=== PATIENT | female | born 1975 | race Caucasian/White ===

== ENCOUNTER 2018-04-14 17:02 | Inpatient (IN) ==
[2018-04-14 17:47] LABS: Basophils % 0.6 % (0.0-0.8); Eosinophils % 0.6 % (0.00-10.9); Hematocrit 27.6 VOL% (35.7-47.0); Hemoglobin 9.4 GM/DL (12.0-16.0); Immature Granulocytes % 1.2 %; Immature Granulocytes Absolute 0.04 #; Lymphocytes # 0.4 10*3/uL (1.4-4.0); Lymphocytes % 12.5 % (21.3-54.2); Mean Corpuscular HGB Conc 34.1 GM/DL (32-36); Mean Corpuscular Hemoglobin 36 PG (27-34); Mean Corpuscular Volume 105.3 FL (87-102); Mean Platelet Volume 9.9 FL (9.6-12.0); Monocytes # 0.2 10*3/uL (0.11-0.8); Monocytes % 5.5 % (1.7-12.7); Neutrophils # 2.6 10*3/uL (1.4-7.4); Neutrophils % 79.6 % (38.7-73.9); Platelet Count 293 T/CUMM (130-400); Red Blood Count 2.62 MC/CUMM (3.8-5.5); Red Cell Distribution Width 18.8 % (9.3-17.3); White Blood Count 3.3 T/CUMM (4-12)
[2018-04-14 18:03] LABS: Alanine Aminotransferase < 6 U/L (13-56); Albumin 2.1 G/DL (3.4-5.0); Alkaline Phosphatase 233 U/L (45-117); Aspartate Amino Transferase 20 U/L (0-37); Blood Urea Nitrogen 5 MG/DL (7-18); Glucose 91 MG/DL (74-106); Osmolality,Calculated 271.7 MOS/KG (273-304); Potassium 3.7 MMOL/L (3.5-5.1); Sodium 138 MMOL/L (136-145); Total Protein 6.7 G/DL (6.4-8.3)
[2018-04-14 18:21] LABS: INR 1.1; PT Patient Result 11.8 SECS; Partial Thromboplastin Time 33.8 SECS (0-40)
[2018-04-14] MEDS ORDERED: MORPHINE 4 MG/1 ML VIAL IV STA (18:26)
[2018-04-14] MEDS ORDERED: ONDANSETRON 4 MG/2 ML VIAL IV ONE (18:26)
[2018-04-14 18:27] LABS: Band Neutrophils 3 % (0-10); Lymphocytes 10 % (20-55); Segmented Neutrophils 81 % (50-85); Total Cells Counted 100
[2018-04-14 18:33] LABS: Anisocytosis 1+
[2018-04-14 18:34] LABS: Platelet Estimate Normal
[2018-04-14] MEDS ORDERED: PIPERACILLIN/TAZOBACTAM 3,375 MG in SODIUM CHLORIDE 0.9% 100 ML IV ONE (19:37)
[2018-04-14] MEDS ORDERED: FLUCONAZOLE 200 MG TABLET PO ONE (21:17)
[2018-04-14] MEDS ORDERED: METHOCARBAMOL 500 MG TABLET PO SCH (21:17)
[2018-04-14] MEDS ORDERED: ACETAMINOPHEN 325 MG TABLET PO PRN (21:17)
[2018-04-14] MEDS ORDERED: NICOTINE 7 MG/24 HR PATCH TRANSDERM PRN (21:17)
[2018-04-14] MEDS ORDERED: oxyCODONE IR 5 MG TABLET PO PRN (21:17)
[2018-04-14] MEDS ORDERED: ONDANSETRON 4 MG/2 ML VIAL IV PRN (21:17)
[2018-04-14] MEDS ORDERED: traZODone 50 MG TABLET PO SCH (21:17)
[2018-04-14] MEDS ORDERED: MORPHINE 4 MG/1 ML VIAL IV PRN (21:17)
[2018-04-14] MEDS ORDERED: ALBUTEROL/IPRATROPIUM 3 ML NEB RESP TX PRN (21:17)
[2018-04-14] MEDS ORDERED: PHENOL 1.4% THROAT SPRAY 177 ML BOTTLE PO PRN (21:17)
[2018-04-14] MEDS: VALSARTAN/HCTZ 80-12.5 MG TABLET PO SCH (22:14)
[2018-04-14] MEDS: VENLAFAXINE XR 75 MG CAPSULE PO SCH (22:15)
[2018-04-14] MEDS: DOCUSATE SODIUM 100 MG CAPSULE PO SCH (22:15)
[2018-04-14] MEDS: LEVOTHYROXINE 100 MCG TABLET PO SCH (22:16)
[2018-04-14] MEDS: ENOXAPARIN 40 MG/0.4 ML SYRINGE SUBCUT SCH (22:16)
[2018-04-14] MEDS: oxyCODONE IR 5 MG TABLET PO SCH (22:16)
[2018-04-14] MEDS: LETROZOLE 2.5 MG TABLET PO SCH (22:16)
[2018-04-14] MEDS: SODIUM CHLORIDE 0.9% 1,000 ML IV SCH (22:17)
[2018-04-15 00:50] LABS: Apearance,Urine CLEAR (Clear); Bilirubin,Urine Negative (Negative); Blood, Urine Negative (Negative); Glucose,Urine (UA) Negative (Negative); Ketones,Urine 5 mg/dL (Negative); Nitrite,Urine Negative (Negative); Protein,Urine Negative; Squamous Epithelial Cell,Urine Occasional /HPF (0-10); Urine Color Yellow (Yellow); Urine Specific Gravity 1.056 (1.001-1.035); Urine Urobilinogen < 2.0 EU/DL (0.2-1.0); WBC,Urine <1 /HPF (0-6)
[2018-04-15] MEDS: ALBUTEROL/IPRATROPIUM 3 ML NEB RESP TX SCH ×4 (01:04→19:48)
[2018-04-15] MEDS: cefTRIAXone 1,000 MG in SYRINGE 1 EACH IV SCH ×2 (02:11→14:59)
[2018-04-15] MEDS: FLUCONAZOLE 100 MG TABLET PO SCH (08:56)
[2018-04-15] MEDS: DOCUSATE SODIUM 100 MG CAPSULE PO SCH ×2 (08:57→20:31)
[2018-04-15] MEDS: VENLAFAXINE XR 75 MG CAPSULE PO SCH ×2 (08:58→20:32)
[2018-04-15] MEDS ORDERED: PANTOPRAZOLE 40 MG TABLET PO SCH (09:00)
[2018-04-15] MEDS ORDERED: oxyCODONE ER 40 MG TABLET PO SCH (09:00)
[2018-04-15] MEDS ORDERED: AZITHROMYCIN INJ 500 MG in SODIUM CHLORIDE 0.9% 250 ML IV SCH (09:00)
[2018-04-15] MEDS: oxyCODONE IR 5 MG TABLET PO SCH (09:02)
[2018-04-15] MEDS ORDERED: oxyCODONE IR 5 MG TABLET PO PRN (13:57)
[2018-04-15] MEDS ORDERED: NALOXONE 0.4 MG/ML VIAL IV ONE (14:12)
[2018-04-15] MEDS ORDERED: NALOXONE 0.4 MG/ML VIAL IV PRN (14:30)
[2018-04-15] MEDS: SODIUM CHLORIDE 0.9% 1,000 ML IV SCH (15:04)
[2018-04-15] MEDS ORDERED: PALBOCICLIB 125 MG PO SCH (17:00)
[2018-04-15 19:40] LABS: ABG Base Excess -3.3 MMOL/L (-2.5-2.5); ABG HCO3 21.4 MMOL/L (20-26); ABG PCO2 45.3 MM HG (35-48); ABG PH 7.312 (7.35-7.45); ABG PO2 45.9 MM HG (80-95); ABG TCO2 21.4 MMOL/L (23-27); Allen Test Positive
[2018-04-15] MEDS: ENOXAPARIN 40 MG/0.4 ML SYRINGE SUBCUT SCH (20:32)
[2018-04-15] MEDS: LETROZOLE 2.5 MG TABLET PO SCH (20:32)
[2018-04-15] MEDS: VALSARTAN/HCTZ 80-12.5 MG TABLET PO SCH (20:32)
[2018-04-15] MEDS: LEVOTHYROXINE 100 MCG TABLET PO SCH (20:32)
[2018-04-15] MEDS: KETOROLAC 30 MG/1 ML VIAL IV PRN (20:36)
[2018-04-15 20:41] LABS: ABG PCO2 48.6 MM HG (35-48); ABG PH 7.282 (7.35-7.45); ABG PO2 73.4 MM HG (80-95); ABG TCO2 20.9 MMOL/L (23-27); Allen Test Positive; Pt O2 Delivery Device BIPAP
[2018-04-15 23:43] LABS: ABG Base Excess -3.6 MMOL/L (-2.5-2.5); ABG HCO3 21.3 MMOL/L (20-26); ABG Oxygen Saturation 91.1 % (95-100); ABG PCO2 52.7 MM HG (35-48); ABG PH 7.258 (7.35-7.45); ABG TCO2 22.6 MMOL/L (23-27); Allen Test Positive; Pt O2 Delivery Device BIPAP
[2018-04-16] MEDS: ALBUTEROL/IPRATROPIUM 3 ML NEB RESP TX SCH ×4 (01:28→21:28)
[2018-04-16] MEDS: SODIUM CHLORIDE 0.9% 1,000 ML IV SCH ×3 (02:12→17:26)
[2018-04-16 03:47] LABS: ABG Base Excess -4.2 MMOL/L (-2.5-2.5); ABG HCO3 21.9 MMOL/L (20-26); ABG Oxygen Saturation 91.4 % (95-100); ABG PCO2 45.1 MM HG (35-48); ABG PH 7.305 (7.35-7.45); ABG PO2 68.8 MM HG (80-95); ABG TCO2 23.3 MMOL/L (23-27); Allen Test Positive; Pt O2 Delivery Device BIPAP
[2018-04-16] MEDS ORDERED: VECURONIUM 10 MG VIAL IV ONE ×2 (04:23→04:30)
[2018-04-16] MEDS ORDERED: ETOMIDATE 20 MG/10 ML VIAL IV ONE ×4 (04:24→04:32)
[2018-04-16] MEDS ORDERED: PROPOFOL 1,000 MG/100 ML BOTTLE IV ONE (04:46)
[2018-04-16 04:57] LABS: Alanine Aminotransferase < 6 U/L (13-56); Albumin 1.6 G/DL (3.4-5.0); Alkaline Phosphatase 186 U/L (45-117); Aspartate Amino Transferase 21 U/L (0-37); Blood Urea Nitrogen 5 MG/DL (7-18); Calcium 7.5 MG/DL (8.5-10.1); Glucose 88 MG/DL (74-106); Osmolality,Calculated 276.3 MOS/KG (273-304); Potassium 4.5 MMOL/L (3.5-5.1); Sodium 141 MMOL/L (136-145); Total Protein 5.5 G/DL (6.4-8.3)
[2018-04-16] MEDS: cefTRIAXone 1,000 MG in SYRINGE 1 EACH IV SCH (05:10)
[2018-04-16 05:39] LABS: ABG Base Excess -3.8 MMOL/L (-2.5-2.5); ABG HCO3 21.2 MMOL/L (20-26); ABG Oxygen Saturation 99.4 % (95-100); ABG PCO2 42.4 MM HG (35-48); ABG PH 7.323 (7.35-7.45); ABG TCO2 20.8 MMOL/L (23-27); Allen Test Positive; Pt O2 Delivery Device Ventilator
[2018-04-16 05:41] LABS: Basophils % 0.4 % (0.0-0.8); Eosinophils % 0.4 % (0.00-10.9); Hematocrit 22.7 VOL% (35.7-47.0); Immature Granulocytes % 1.2 %; Immature Granulocytes Absolute 0.03 #; Lymphocytes # 0.4 10*3/uL (1.4-4.0); Lymphocytes % 15.4 % (21.3-54.2); Mean Corpuscular HGB Conc 32.2 GM/DL (32-36); Mean Corpuscular Hemoglobin 35 PG (27-34); Mean Corpuscular Volume 108.6 FL (87-102); Mean Platelet Volume 9.9 FL (9.6-12.0); Monocytes # 0.1 10*3/uL (0.11-0.8); Monocytes % 4.5 % (1.7-12.7); NRBC # 0.02 10*3/uL; Neutrophils # 1.9 10*3/uL (1.4-7.4); Neutrophils % 78.1 % (38.7-73.9); Platelet Count 267 T/CUMM (130-400); Red Cell Distribution Width 19.1 % (9.3-17.3); White Blood Count 2.5 T/CUMM (4-12)
[2018-04-16 05:45] LABS: Red Blood Count 2.09 MC/CUMM (3.8-5.5)
[2018-04-16 05:46] LABS: Hemoglobin 7.3 GM/DL (12.0-16.0)
[2018-04-16 06:08] LABS: Acanthocytes Few; Anisocytosis 3+; Band Neutrophils 4 % (0-10); Lymphocytes 20 % (20-55); Macrocytosis 2+; Microcytosis 1+; Platelet Estimate Normal; Segmented Neutrophils 71 % (50-85); Total Cells Counted 100
[2018-04-16] MEDS: PROPOFOL 1,000 MG/100 ML BOTTLE IV SCH ×2 (06:54→22:50)
[2018-04-16] MEDS ORDERED: FUROSEMIDE 20 MG/2 ML VIAL IV ONE (07:43)
[2018-04-16] MEDS ORDERED: SODIUM CHLORIDE 0.9% 1,000 ML IV PRN (07:46)
[2018-04-16] MEDS: VENLAFAXINE XR 75 MG CAPSULE PO SCH ×2 (10:31→22:18)
[2018-04-16] MEDS: DOCUSATE SODIUM 100 MG CAPSULE PO SCH ×2 (10:31→22:17)
[2018-04-16] MEDS: LEVOFLOXACIN INJ 500 MG in PREMIX 1 EACH IV SCH (10:39)
[2018-04-16] MEDS: PANTOPRAZOLE 40 MG VIAL IV SCH (10:39)
[2018-04-16] MEDS: methylPREDNISolone SOD SUC 40 MG/1 ML VIAL IV SCH ×2 (10:39→20:15)
[2018-04-16] MEDS: VANCOMYCIN INJ 1,000 MG in SODIUM CHLORIDE 0.9% 250 ML IV SCH ×2 (10:39→20:24)
[2018-04-16] MEDS: KETOROLAC 30 MG/1 ML VIAL IV PRN ×2 (10:59→22:15)
[2018-04-16] MEDS: FLUCONAZOLE 100 MG TABLET PO SCH (11:02)
[2018-04-16] MEDS ORDERED: MORPHINE 4 MG/1 ML VIAL IV ONE (11:30)
[2018-04-16] MEDS ORDERED: LIDOCAINE 1%/EPI INJ 20 ML VIAL ONE (11:50)
[2018-04-16] MEDS ORDERED: MORPHINE 4 MG/1 ML VIAL ONE ×2 (11:51→18:00)
[2018-04-16] MEDS: FLUCONAZOLE INJ 100 MG in IV BAG 1 EACH IV SCH (14:21)
[2018-04-16] MEDS: PIPERACILLIN/TAZOBACTAM 3,375 MG in SODIUM CHLORIDE 0.9% 100 ML IV SCH ×2 (14:21→20:20)
[2018-04-16 14:51] LABS: Amorphous Crystals,Urine Occasional /HPF (Few); Apearance,Urine Slightly Hazy (Clear); Bacteria,Urine Occasional /HPF (Few); Bilirubin,Urine Negative (Negative); Blood, Urine Negative (Negative); Glucose,Urine (UA) Negative (Negative); Ketones,Urine 20 mg/dL (Negative); Mucus,Urine Occasional /LPF (Occasional); Nitrite,Urine Negative (Negative); Protein,Urine 100 MG/DL; RBC,Urine 2 /HPF (0-4); Squamous Epithelial Cell,Urine Occasional /HPF (0-10); Transitional Epi Cells,Urine Occasional /HPF (<1); Urine Color Yellow (Yellow); Urine Specific Gravity 1.021 (1.001-1.035); Urine Urobilinogen < 2.0 EU/DL (0.2-1.0); WBC,Urine 4 /HPF (0-6)
[2018-04-16 15:34] LABS: Lymphocytes,Pleural Fluid 24 %; Monocytes,Pleural Fluid 1 %; Neutrophils,Pleural Fluid 75 %
[2018-04-16 15:36] LABS: RBC,Pleural Fluid 8500 T/CUMM
[2018-04-16] MEDS ORDERED: MORPHINE 4 MG/1 ML VIAL IV SCH (18:00)
[2018-04-16] MEDS: MORPHINE 10 MG/1 ML VIAL IV PRN ×2 (18:05→22:13)
[2018-04-16] MEDS: VALSARTAN/HCTZ 80-12.5 MG TABLET PO SCH (22:17)
[2018-04-16] MEDS: LETROZOLE 2.5 MG TABLET PO SCH (22:17)
[2018-04-16] MEDS: ENOXAPARIN 40 MG/0.4 ML SYRINGE SUBCUT SCH (22:18)
[2018-04-16] MEDS: LEVOTHYROXINE 100 MCG TABLET PO SCH (22:18)
[2018-04-17] MEDS: ALBUTEROL/IPRATROPIUM 3 ML NEB RESP TX SCH ×4 (00:52→19:32)
[2018-04-17] MEDS: MORPHINE 10 MG/1 ML VIAL IV PRN ×5 (02:05→20:06)
[2018-04-17] MEDS: PIPERACILLIN/TAZOBACTAM 3,375 MG in SODIUM CHLORIDE 0.9% 100 ML IV SCH ×3 (04:20→20:06)
[2018-04-17] MEDS: PROPOFOL 1,000 MG/100 ML BOTTLE IV SCH ×4 (04:30→22:30)
[2018-04-17 04:38] LABS: ABG Base Excess -4.8 MMOL/L (-2.5-2.5); ABG HCO3 20.4 MMOL/L (20-26); ABG Oxygen Saturation 95.6 % (95-100); ABG PCO2 35.5 MM HG (35-48); ABG PO2 81.2 MM HG (80-95); ABG TCO2 18.4 MMOL/L (23-27); Pt O2 Delivery Device Ventilator
[2018-04-17 04:42] LABS: Hematocrit 30.3 VOL% (35.7-47.0); Immature Granulocytes % 1.5 %; Immature Granulocytes Absolute 0.04 #; Lymphocytes # 0.2 10*3/uL (1.4-4.0); Lymphocytes % 5.9 % (21.3-54.2); Mean Corpuscular HGB Conc 34.7 GM/DL (32-36); Mean Corpuscular Hemoglobin 34 PG (27-34); Mean Corpuscular Volume 97.4 FL (87-102); Monocytes # 0.1 10*3/uL (0.11-0.8); NRBC # 0.03 10*3/uL; Neutrophils # 2.4 10*3/uL (1.4-7.4); Neutrophils % 89.6 % (38.7-73.9); Platelet Count 250 T/CUMM (130-400); Red Blood Count 3.11 MC/CUMM (3.8-5.5); Red Cell Distribution Width 19.6 % (9.3-17.3); White Blood Count 2.7 T/CUMM (4-12)
[2018-04-17 04:54] LABS: Hemoglobin 10.5 GM/DL (12.0-16.0)
[2018-04-17 05:25] LABS: Eosinophils 1 % (0-10); Lymphocytes 5 % (20-55); Segmented Neutrophils 94 % (50-85); Total Cells Counted 100
[2018-04-17 05:39] LABS: Alanine Aminotransferase < 6 U/L (13-56); Albumin 1.5 G/DL (3.4-5.0); Alkaline Phosphatase 174 U/L (45-117); Aspartate Amino Transferase 23 U/L (0-37); Blood Urea Nitrogen 9 MG/DL (7-18); Calcium 7.3 MG/DL (8.5-10.1); Glucose 126 MG/DL (74-106); Osmolality,Calculated 281.3 MOS/KG (273-304); Potassium 3.6 MMOL/L (3.5-5.1); Sodium 141 MMOL/L (136-145); Total Protein 5.7 G/DL (6.4-8.3)
[2018-04-17] MEDS: SODIUM CHLORIDE 0.9% 1,000 ML IV SCH ×3 (06:16→19:45)
[2018-04-17] MEDS: LEVOFLOXACIN INJ 500 MG in PREMIX 1 EACH IV SCH (09:42)
[2018-04-17] MEDS: PANTOPRAZOLE 40 MG VIAL IV SCH (10:35)
[2018-04-17] MEDS: methylPREDNISolone SOD SUC 40 MG/1 ML VIAL IV SCH ×2 (10:35→20:06)
[2018-04-17] MEDS: DOCUSATE SODIUM 100 MG CAPSULE PO SCH ×2 (10:36→22:30)
[2018-04-17] MEDS: VENLAFAXINE 75 MG TABLET PER TUBE SCH ×2 (10:36→22:30)
[2018-04-17] MEDS: VANCOMYCIN INJ 1,000 MG in SODIUM CHLORIDE 0.9% 250 ML IV SCH ×2 (10:46→23:59)
[2018-04-17] MEDS: VENLAFAXINE XR 75 MG CAPSULE PO SCH (10:50)
[2018-04-17] MEDS: FLUCONAZOLE INJ 100 MG in IV BAG 1 EACH IV SCH (11:59)
[2018-04-17] MEDS ORDERED: DEXTROSE 50% 25 GM/50 ML VIAL IV PRN (12:36)
[2018-04-17] MEDS ORDERED: GLUCAGON 1 MG VIAL IM PRN (12:36)
[2018-04-17] MEDS: INSULIN REGULAR 100 UNIT/ML SUBCUT SCH (19:36)
[2018-04-17] MEDS: VALSARTAN/HCTZ 80-12.5 MG TABLET PO SCH (22:30)
[2018-04-17] MEDS: LETROZOLE 2.5 MG TABLET PO SCH (22:30)
[2018-04-17] MEDS: ENOXAPARIN 40 MG/0.4 ML SYRINGE SUBCUT SCH (22:31)
[2018-04-17] MEDS: LEVOTHYROXINE 100 MCG TABLET PO SCH (22:31)
[2018-04-18] MEDS: ALBUTEROL/IPRATROPIUM 3 ML NEB RESP TX SCH ×4 (00:30→19:45)
[2018-04-18] MEDS: INSULIN REGULAR 100 UNIT/ML SUBCUT SCH ×4 (00:58→18:27)
[2018-04-18] MEDS: MORPHINE 10 MG/1 ML VIAL IV PRN ×6 (00:58→22:56)
[2018-04-18] MEDS: PROPOFOL 1,000 MG/100 ML BOTTLE IV SCH ×6 (03:30→22:40)
[2018-04-18 03:48] LABS: Hematocrit 29.2 VOL% (35.7-47.0); Immature Granulocytes % 1.5 %; Immature Granulocytes Absolute 0.06 #; Lymphocytes # 0.3 10*3/uL (1.4-4.0); Lymphocytes % 6.4 % (21.3-54.2); Mean Corpuscular HGB Conc 34.2 GM/DL (32-36); Mean Corpuscular Hemoglobin 33 PG (27-34); Mean Corpuscular Volume 97.3 FL (87-102); Mean Platelet Volume 10.4 FL (9.6-12.0); Monocytes # 0.1 10*3/uL (0.11-0.8); Monocytes % 2.6 % (1.7-12.7); NRBC # 0.02 10*3/uL; Neutrophils # 3.5 10*3/uL (1.4-7.4); Neutrophils % 89.5 % (38.7-73.9); Platelet Count 247 T/CUMM (130-400); Red Cell Distribution Width 19.6 % (9.3-17.3); White Blood Count 3.9 T/CUMM (4-12)
[2018-04-18 04:05] LABS: ABG Base Excess -3.1 MMOL/L (-2.5-2.5); ABG HCO3 21.8 MMOL/L (20-26); ABG Oxygen Saturation 94.7 % (95-100); ABG PCO2 37.2 MM HG (35-48); ABG PH 7.374 (7.35-7.45); ABG PO2 78.5 MM HG (80-95); ABG TCO2 19.7 MMOL/L (23-27); Allen Test Positive; Pt O2 Delivery Device Ventilator
[2018-04-18 04:14] LABS: Alanine Aminotransferase < 6 U/L (13-56); Albumin 1.5 G/DL (3.4-5.0); Alkaline Phosphatase 167 U/L (45-117); Aspartate Amino Transferase 18 U/L (0-37); Blood Urea Nitrogen 15 MG/DL (7-18); Calcium 7.6 MG/DL (8.5-10.1); Glucose 159 MG/DL (74-106); Osmolality,Calculated 284.3 MOS/KG (273-304); Potassium 3.3 MMOL/L (3.5-5.1); Sodium 141 MMOL/L (136-145); Total Protein 5.4 G/DL (6.4-8.3)
[2018-04-18 04:32] LABS: Prealbumin 5.5 MG/DL (20-40)
[2018-04-18] MEDS: PIPERACILLIN/TAZOBACTAM 3,375 MG in SODIUM CHLORIDE 0.9% 100 ML IV SCH ×3 (05:25→20:26)
[2018-04-18] MEDS: SODIUM CHLORIDE 0.9% 1,000 ML IV SCH ×3 (05:42→20:32)
[2018-04-18] MEDS: LEVOFLOXACIN INJ 500 MG in PREMIX 1 EACH IV SCH (08:44)
[2018-04-18] MEDS: KETOROLAC 30 MG/1 ML VIAL IV PRN (08:48)
[2018-04-18] MEDS: methylPREDNISolone SOD SUC 40 MG/1 ML VIAL IV SCH (08:51)
[2018-04-18] MEDS: PANTOPRAZOLE 40 MG VIAL IV SCH (08:54)
[2018-04-18] MEDS: VENLAFAXINE 75 MG TABLET PER TUBE SCH ×2 (08:58→22:41)
[2018-04-18] MEDS: DOCUSATE SODIUM 100 MG CAPSULE PO SCH ×2 (09:01→22:42)
[2018-04-18] MEDS: VANCOMYCIN INJ 1,000 MG in SODIUM CHLORIDE 0.9% 250 ML IV SCH (10:40)
[2018-04-18] MEDS: NICOTINE 14 MG/24 HR PATCH TRANSDERM SCH (10:48)
[2018-04-18] MEDS: methylPREDNISolone SOD SUC 125 MG/2 ML VIAL IV SCH (10:49)
[2018-04-18] MEDS: FLUCONAZOLE INJ 100 MG in IV BAG 1 EACH IV SCH (12:04)
[2018-04-18] MEDS ORDERED: MORPHINE 4 MG/1 ML VIAL IV ONE (14:30)
[2018-04-18] MEDS: fentaNYL 50 MCG/HR PATCH TRANSDERM SCH (15:37)
[2018-04-18] MEDS: LEVOTHYROXINE 100 MCG TABLET PO SCH (22:41)
[2018-04-18] MEDS: LETROZOLE 2.5 MG TABLET PO SCH (22:41)
[2018-04-18] MEDS: VALSARTAN/HCTZ 80-12.5 MG TABLET PO SCH (22:41)
[2018-04-18] MEDS: ENOXAPARIN 40 MG/0.4 ML SYRINGE SUBCUT SCH (22:42)
[2018-04-19] MEDS: ALBUTEROL/IPRATROPIUM 3 ML NEB RESP TX SCH ×4 (00:44→19:10)
[2018-04-19] MEDS: VANCOMYCIN INJ 1,000 MG in SODIUM CHLORIDE 0.9% 250 ML IV SCH ×2 (01:05→11:33)
[2018-04-19] MEDS: methylPREDNISolone SOD SUC 125 MG/2 ML VIAL IV SCH ×2 (01:05→11:18)
[2018-04-19] MEDS: MORPHINE 10 MG/1 ML VIAL IV PRN ×6 (01:05→19:47)
[2018-04-19] MEDS: PROPOFOL 1,000 MG/100 ML BOTTLE IV SCH ×6 (02:56→23:31)
[2018-04-19 03:03] LABS: ABG Base Excess -3.3 MMOL/L (-2.5-2.5); ABG HCO3 21.6 MMOL/L (20-26); ABG Oxygen Saturation 93.7 % (95-100); ABG PCO2 41.3 MM HG (35-48); ABG TCO2 20.3 MMOL/L (23-27); Allen Test Positive; Pt O2 Delivery Device Ventilator
[2018-04-19] MEDS: INSULIN REGULAR 100 UNIT/ML SUBCUT SCH ×4 (03:08→18:30)
[2018-04-19] MEDS: PIPERACILLIN/TAZOBACTAM 3,375 MG in SODIUM CHLORIDE 0.9% 100 ML IV SCH ×3 (04:50→20:59)
[2018-04-19 05:17] LABS: Hematocrit 31.1 VOL% (35.7-47.0); Hemoglobin 10.4 GM/DL (12.0-16.0); Immature Granulocytes % 0.8 %; Immature Granulocytes Absolute 0.04 #; Lymphocytes # 0.4 10*3/uL (1.4-4.0); Lymphocytes % 7.1 % (21.3-54.2); Mean Corpuscular HGB Conc 33.4 GM/DL (32-36); Mean Corpuscular Hemoglobin 34 PG (27-34); Mean Corpuscular Volume 100.6 FL (87-102); Monocytes # 0.2 10*3/uL (0.11-0.8); Monocytes % 3.3 % (1.7-12.7); Neutrophils # 4.4 10*3/uL (1.4-7.4); Neutrophils % 88.8 % (38.7-73.9); Platelet Count 231 T/CUMM (130-400); Red Blood Count 3.09 MC/CUMM (3.8-5.5); Red Cell Distribution Width 19.9 % (9.3-17.3); White Blood Count 4.9 T/CUMM (4-12)
[2018-04-19] MEDS: SODIUM CHLORIDE 0.9% 1,000 ML IV SCH ×4 (05:45→22:57)
[2018-04-19 05:46] LABS: Calcium 7.5 MG/DL (8.5-10.1); Osmolality,Calculated 292.7 MOS/KG (273-304); Potassium 3.7 MMOL/L (3.5-5.1)
[2018-04-19] MEDS: PANTOPRAZOLE 40 MG VIAL IV SCH (09:13)
[2018-04-19] MEDS: DOCUSATE SODIUM 100 MG CAPSULE PO SCH ×2 (09:13→21:00)
[2018-04-19] MEDS: NICOTINE 14 MG/24 HR PATCH TRANSDERM SCH (09:13)
[2018-04-19] MEDS: VENLAFAXINE 75 MG TABLET PER TUBE SCH ×2 (09:13→20:59)
[2018-04-19] MEDS: LEVOFLOXACIN INJ 500 MG in PREMIX 1 EACH IV SCH (09:18)
[2018-04-19] MEDS: FLUCONAZOLE INJ 100 MG in IV BAG 1 EACH IV SCH (11:14)
[2018-04-19] MEDS: VALSARTAN/HCTZ 80-12.5 MG TABLET PO SCH (21:00)
[2018-04-19] MEDS: LETROZOLE 2.5 MG TABLET PO SCH (21:00)
[2018-04-19] MEDS: ENOXAPARIN 40 MG/0.4 ML SYRINGE SUBCUT SCH (21:00)
[2018-04-19] MEDS: LEVOTHYROXINE 100 MCG TABLET PO SCH (21:00)
[2018-04-20] MEDS: INSULIN REGULAR 100 UNIT/ML SUBCUT SCH ×5 (00:15→23:49)
[2018-04-20] MEDS: VANCOMYCIN INJ 1,000 MG in SODIUM CHLORIDE 0.9% 250 ML IV SCH ×2 (00:15→12:54)
[2018-04-20] MEDS: methylPREDNISolone SOD SUC 125 MG/2 ML VIAL IV SCH ×3 (00:15→23:59)
[2018-04-20] MEDS: MORPHINE 10 MG/1 ML VIAL IV PRN ×3 (00:38→20:23)
[2018-04-20] MEDS: ALBUTEROL/IPRATROPIUM 3 ML NEB RESP TX SCH ×4 (00:43→20:08)
[2018-04-20 03:52] LABS: ABG Base Excess 0.7 MMOL/L (-2.5-2.5); ABG Oxygen Saturation 99.1 % (95-100); ABG PCO2 43.2 MM HG (35-48); ABG PH 7.385 (7.35-7.45); ABG TCO2 23.4 MMOL/L (23-27); Allen Test Positive; Pt O2 Delivery Device Ventilator
[2018-04-20] MEDS: PROPOFOL 1,000 MG/100 ML BOTTLE IV SCH ×4 (03:58→21:35)
[2018-04-20] MEDS: PIPERACILLIN/TAZOBACTAM 3,375 MG in SODIUM CHLORIDE 0.9% 100 ML IV SCH ×3 (04:25→20:27)
[2018-04-20 04:42] LABS: Hematocrit 30.6 VOL% (35.7-47.0); Hemoglobin 10.2 GM/DL (12.0-16.0); Immature Granulocytes % 1.2 %; Immature Granulocytes Absolute 0.06 #; Lymphocytes # 0.4 10*3/uL (1.4-4.0); Lymphocytes % 7.2 % (21.3-54.2); Mean Corpuscular HGB Conc 33.3 GM/DL (32-36); Mean Corpuscular Hemoglobin 34 PG (27-34); Mean Platelet Volume 10.2 FL (9.6-12.0); Monocytes # 0.3 10*3/uL (0.11-0.8); Monocytes % 5.2 % (1.7-12.7); Neutrophils # 4.4 10*3/uL (1.4-7.4); Neutrophils % 86.4 % (38.7-73.9); Platelet Count 203 T/CUMM (130-400); Red Blood Count 3.03 MC/CUMM (3.8-5.5); Red Cell Distribution Width 19.8 % (9.3-17.3)
[2018-04-20 04:51] LABS: Calcium 7.2 MG/DL (8.5-10.1); Osmolality,Calculated 292.7 MOS/KG (273-304); Potassium 3.5 MMOL/L (3.5-5.1)
[2018-04-20] MEDS: VENLAFAXINE 75 MG TABLET PER TUBE SCH ×2 (09:28→20:21)
[2018-04-20] MEDS: PANTOPRAZOLE 40 MG VIAL IV SCH (09:28)
[2018-04-20] MEDS: LEVOFLOXACIN INJ 500 MG in PREMIX 1 EACH IV SCH (09:29)
[2018-04-20] MEDS: NICOTINE 14 MG/24 HR PATCH TRANSDERM SCH (09:29)
[2018-04-20] MEDS: DOCUSATE SODIUM 100 MG/10 ML UDCUP PER TUBE SCH ×2 (09:29→20:21)
[2018-04-20] MEDS: SODIUM CHLORIDE 0.9% 1,000 ML IV SCH (10:00)
[2018-04-20] MEDS ORDERED: POTASSIUM CHLORIDE 20 MEQ/15 ML UDCUP PO ONE (13:00)
[2018-04-20] MEDS: POTASSIUM PHOS/SOD PHOS POWDER 250 MG PACK PER TUBE SCH ×2 (17:19→23:58)
[2018-04-20] MEDS: LETROZOLE 2.5 MG TABLET PO SCH (20:21)
[2018-04-20] MEDS: LEVOTHYROXINE 100 MCG TABLET PO SCH (20:22)
[2018-04-20] MEDS: VALSARTAN/HCTZ 80-12.5 MG TABLET PO SCH (20:22)
[2018-04-20] MEDS: ENOXAPARIN 40 MG/0.4 ML SYRINGE SUBCUT SCH (21:28)
[2018-04-21] MEDS: SODIUM CHLORIDE 0.9% 1,000 ML IV SCH ×2 (00:03→16:02)
[2018-04-21] MEDS: PROPOFOL 1,000 MG/100 ML BOTTLE IV SCH ×8 (01:02→22:50)
[2018-04-21] MEDS: ALBUTEROL/IPRATROPIUM 3 ML NEB RESP TX SCH ×4 (01:54→19:15)
[2018-04-21] MEDS: MORPHINE 10 MG/1 ML VIAL IV PRN ×4 (03:47→23:10)
[2018-04-21 03:49] LABS: Basophils % 0.2 % (0.0-0.8); Eosinophils % 0.2 % (0.00-10.9); Hematocrit 33.3 VOL% (35.7-47.0); Hemoglobin 11.2 GM/DL (12.0-16.0); Immature Granulocytes Absolute 0.32 #; Lymphocytes # 0.5 10*3/uL (1.4-4.0); Lymphocytes % 7.8 % (21.3-54.2); Mean Corpuscular HGB Conc 33.6 GM/DL (32-36); Mean Corpuscular Hemoglobin 34 PG (27-34); Mean Platelet Volume 10.1 FL (9.6-12.0); Monocytes # 0.4 10*3/uL (0.11-0.8); Monocytes % 6.8 % (1.7-12.7); Neutrophils # 5.2 10*3/uL (1.4-7.4); Platelet Count 196 T/CUMM (130-400); Red Blood Count 3.33 MC/CUMM (3.8-5.5); Red Cell Distribution Width 19.2 % (9.3-17.3); White Blood Count 6.5 T/CUMM (4-12)
[2018-04-21 04:08] LABS: Osmolality,Calculated 285.1 MOS/KG (273-304)
[2018-04-21] MEDS: PIPERACILLIN/TAZOBACTAM 3,375 MG in SODIUM CHLORIDE 0.9% 100 ML IV SCH ×3 (04:16→20:33)
[2018-04-21 04:50] LABS: ABG HCO3 26.2 MMOL/L (20-26); ABG Oxygen Saturation 99.5 % (95-100); ABG PCO2 40.7 MM HG (35-48); ABG PH 7.422 (7.35-7.45); ABG TCO2 23.1 MMOL/L (23-27); Allen Test Positive; Pt O2 Delivery Device Ventilator
[2018-04-21] MEDS: INSULIN REGULAR 100 UNIT/ML SUBCUT SCH ×3 (05:40→17:31)
[2018-04-21] MEDS: NICOTINE 14 MG/24 HR PATCH TRANSDERM SCH (08:18)
[2018-04-21] MEDS: DOCUSATE SODIUM 100 MG/10 ML UDCUP PER TUBE SCH ×2 (08:18→20:33)
[2018-04-21] MEDS: PANTOPRAZOLE 40 MG VIAL IV SCH (08:18)
[2018-04-21] MEDS: VENLAFAXINE 75 MG TABLET PER TUBE SCH ×2 (08:18→20:33)
[2018-04-21] MEDS: LEVOFLOXACIN INJ 500 MG in PREMIX 1 EACH IV SCH (08:18)
[2018-04-21] MEDS: fentaNYL 50 MCG/HR PATCH TRANSDERM SCH (08:19)
[2018-04-21] MEDS ORDERED: POTASSIUM CHLORIDE 20 MEQ/15 ML UDCUP PO ONE (10:04)
[2018-04-21] MEDS: VANCOMYCIN INJ 1,000 MG in SODIUM CHLORIDE 0.9% 250 ML IV SCH ×3 (11:20→23:08)
[2018-04-21] MEDS: methylPREDNISolone SOD SUC 125 MG/2 ML VIAL IV SCH ×2 (11:21→23:08)
[2018-04-21] MEDS: ALPRAZolam 0.25 MG TABLET PO PRN (20:34)
[2018-04-21] MEDS: ENOXAPARIN 40 MG/0.4 ML SYRINGE SUBCUT SCH (20:34)
[2018-04-21] MEDS: LETROZOLE 2.5 MG TABLET PO SCH (20:34)
[2018-04-21] MEDS: LEVOTHYROXINE 100 MCG TABLET PO SCH (20:34)
[2018-04-21] MEDS: VALSARTAN/HCTZ 80-12.5 MG TABLET PO SCH (20:34)
[2018-04-22] MEDS: ALBUTEROL/IPRATROPIUM 3 ML NEB RESP TX SCH ×4 (00:37→19:10)
[2018-04-22] MEDS: INSULIN REGULAR 100 UNIT/ML SUBCUT SCH ×4 (01:06→18:04)
[2018-04-22] MEDS: PROPOFOL 1,000 MG/100 ML BOTTLE IV SCH ×7 (02:04→22:35)
[2018-04-22] MEDS: SODIUM CHLORIDE 0.9% 1,000 ML IV SCH ×3 (02:37→20:29)
[2018-04-22 03:45] LABS: Basophils % 0.2 % (0.0-0.8); Eosinophils % 0.5 % (0.00-10.9); Hematocrit 34.2 VOL% (35.7-47.0); Hemoglobin 11.5 GM/DL (12.0-16.0); Immature Granulocytes % 8.6 %; Immature Granulocytes Absolute 0.56 #; Lymphocytes # 0.5 10*3/uL (1.4-4.0); Lymphocytes % 7.4 % (21.3-54.2); Mean Corpuscular HGB Conc 33.6 GM/DL (32-36); Mean Corpuscular Hemoglobin 34 PG (27-34); Mean Platelet Volume 10.5 FL (9.6-12.0); Monocytes # 0.5 10*3/uL (0.11-0.8); Monocytes % 6.9 % (1.7-12.7); Neutrophils % 76.4 % (38.7-73.9); Platelet Count 199 T/CUMM (130-400); Red Blood Count 3.42 MC/CUMM (3.8-5.5); Red Cell Distribution Width 18.8 % (9.3-17.3); White Blood Count 6.5 T/CUMM (4-12)
[2018-04-22 03:57] LABS: Calcium 6.6 MG/DL (8.5-10.1); Osmolality,Calculated 284.1 MOS/KG (273-304); Potassium 3.5 MMOL/L (3.5-5.1)
[2018-04-22 04:17] LABS: Band Neutrophils 1 % (0-10); Lymphocytes 18 % (20-55); Macrocytosis 3+; Nucleated Red Blood Cells 1 (0-5); Platelet Estimate Normal; Segmented Neutrophils 78 % (50-85); Total Cells Counted 100
[2018-04-22 04:20] LABS: ABG Base Excess 1.8 MMOL/L (-2.5-2.5); ABG HCO3 24.9 MMOL/L (20-26); ABG Oxygen Saturation 98.9 % (95-100); ABG PCO2 34.1 MM HG (35-48); ABG PH 7.482 (7.35-7.45); ABG PO2 209.1 MM HG (80-95); Allen Test Positive; Pt O2 Delivery Device Ventilator
[2018-04-22] MEDS: PIPERACILLIN/TAZOBACTAM 3,375 MG in SODIUM CHLORIDE 0.9% 100 ML IV SCH ×3 (05:20→21:32)
[2018-04-22] MEDS: MORPHINE 10 MG/1 ML VIAL IV PRN ×2 (05:47→12:46)
[2018-04-22] MEDS: LEVOFLOXACIN INJ 500 MG in PREMIX 1 EACH IV SCH (08:02)
[2018-04-22] MEDS: NICOTINE 14 MG/24 HR PATCH TRANSDERM SCH (08:04)
[2018-04-22] MEDS: PANTOPRAZOLE 40 MG VIAL IV SCH (08:04)
[2018-04-22] MEDS: DOCUSATE SODIUM 100 MG/10 ML UDCUP PER TUBE SCH ×2 (08:04→21:32)
[2018-04-22] MEDS: VENLAFAXINE 75 MG TABLET PER TUBE SCH ×2 (08:05→21:32)
[2018-04-22] MEDS: ALPRAZolam 0.25 MG TABLET PO PRN ×2 (08:05→21:32)
[2018-04-22] MEDS: methylPREDNISolone SOD SUC 125 MG/2 ML VIAL IV SCH (10:26)
[2018-04-22] MEDS: VANCOMYCIN INJ 1,000 MG in SODIUM CHLORIDE 0.9% 250 ML IV SCH (10:27)
[2018-04-22] MEDS ORDERED: POTASSIUM CHLORIDE 20 MEQ/15 ML UDCUP PO ONE (11:00)
[2018-04-22] MEDS: VALSARTAN/HCTZ 80-12.5 MG TABLET PO SCH (21:32)
[2018-04-22] MEDS: ENOXAPARIN 40 MG/0.4 ML SYRINGE SUBCUT SCH (21:32)
[2018-04-22] MEDS: LETROZOLE 2.5 MG TABLET PO SCH (21:32)
[2018-04-22] MEDS: LEVOTHYROXINE 100 MCG TABLET PO SCH (21:32)
[2018-04-23] MEDS: ALBUTEROL/IPRATROPIUM 3 ML NEB RESP TX SCH ×4 (00:18→19:28)
[2018-04-23] MEDS: INSULIN REGULAR 100 UNIT/ML SUBCUT SCH ×4 (01:07→18:46)
[2018-04-23] MEDS: VANCOMYCIN INJ 1,000 MG in SODIUM CHLORIDE 0.9% 250 ML IV SCH ×2 (01:16→14:03)
[2018-04-23] MEDS: methylPREDNISolone SOD SUC 125 MG/2 ML VIAL IV SCH ×3 (01:18→23:27)
[2018-04-23] MEDS: PROPOFOL 1,000 MG/100 ML BOTTLE IV SCH ×3 (02:08→08:45)
[2018-04-23] MEDS: PIPERACILLIN/TAZOBACTAM 3,375 MG in SODIUM CHLORIDE 0.9% 100 ML IV SCH ×3 (04:10→20:47)
[2018-04-23] MEDS: MORPHINE 10 MG/1 ML VIAL IV PRN ×3 (04:11→23:28)
[2018-04-23 04:17] LABS: Basophils % 0.4 % (0.0-0.8); Eosinophils # 0.1 10*3/uL (0.0-0.87); Eosinophils % 1.3 % (0.00-10.9); Hematocrit 35.9 VOL% (35.7-47.0); Hemoglobin 11.9 GM/DL (12.0-16.0); Immature Granulocytes % 9.6 %; Immature Granulocytes Absolute 0.68 #; Lymphocytes # 0.7 10*3/uL (1.4-4.0); Lymphocytes % 10.4 % (21.3-54.2); Mean Corpuscular HGB Conc 33.1 GM/DL (32-36); Mean Corpuscular Hemoglobin 33 PG (27-34); Mean Corpuscular Volume 99.7 FL (87-102); Mean Platelet Volume 10.5 FL (9.6-12.0); Monocytes # 0.6 10*3/uL (0.11-0.8); Monocytes % 8.8 % (1.7-12.7); NRBC # 0.02 10*3/uL; Neutrophils % 69.5 % (38.7-73.9); Platelet Count 217 T/CUMM (130-400); Red Cell Distribution Width 18.9 % (9.3-17.3); White Blood Count 7.1 T/CUMM (4-12)
[2018-04-23 04:37] LABS: Calcium 7.1 MG/DL (8.5-10.1); Osmolality,Calculated 288.7 MOS/KG (273-304); Potassium 3.6 MMOL/L (3.5-5.1)
[2018-04-23 04:41] LABS: Prealbumin 34.3 MG/DL (20-40)
[2018-04-23 04:44] LABS: ABG Base Excess 0.7 MMOL/L (-2.5-2.5); ABG HCO3 24.1 MMOL/L (20-26); ABG Oxygen Saturation 98.8 % (95-100); ABG PCO2 34.8 MM HG (35-48); ABG PH 7.459 (7.35-7.45); ABG PO2 156.4 MM HG (80-95); ABG TCO2 25.2 MMOL/L (23-27); Pt O2 Delivery Device Ventilator
[2018-04-23 04:59] LABS: Band Neutrophils 2 % (0-10); Eosinophils 2 % (0-10); Lymphocytes 26 % (20-55); Macrocytosis 3+; Nucleated Red Blood Cells 1 (0-5); Platelet Estimate Normal; Segmented Neutrophils 70 % (50-85); Total Cells Counted 100
[2018-04-23] MEDS: SODIUM CHLORIDE 0.9% 1,000 ML IV SCH ×3 (06:11→18:47)
[2018-04-23] MEDS ORDERED: POTASSIUM PHOSPHATE 20 MMOL in SODIUM CHLORIDE 0.9% 250 ML IV ONE (09:30)
[2018-04-23] MEDS: DOCUSATE SODIUM 100 MG/10 ML UDCUP PER TUBE SCH ×2 (10:14→20:48)
[2018-04-23] MEDS: PANTOPRAZOLE 40 MG VIAL IV SCH (10:14)
[2018-04-23] MEDS: VENLAFAXINE 75 MG TABLET PER TUBE SCH ×2 (10:15→20:46)
[2018-04-23] MEDS: LEVOFLOXACIN INJ 500 MG in PREMIX 1 EACH IV SCH (10:16)
[2018-04-23 11:28] LABS: ABG HCO3 24.4 MMOL/L (20-26); ABG Oxygen Saturation 98.8 % (95-100); ABG PCO2 40.1 MM HG (35-48); ABG PH 7.398 (7.35-7.45); ABG TCO2 22.1 MMOL/L (23-27)
[2018-04-23 13:28] LABS: ABG Base Excess 0.4 MMOL/L (-2.5-2.5); ABG HCO3 24.8 MMOL/L (20-26); ABG PCO2 34.8 MM HG (35-48); ABG PH 7.446 (7.35-7.45); ABG TCO2 21.3 MMOL/L (23-27)
[2018-04-23] MEDS: NICOTINE 14 MG/24 HR PATCH TRANSDERM SCH (14:53)
[2018-04-23] MEDS: VALSARTAN/HCTZ 80-12.5 MG TABLET PO SCH (20:46)
[2018-04-23] MEDS: LETROZOLE 2.5 MG TABLET PO SCH (20:46)
[2018-04-23] MEDS: LEVOTHYROXINE 100 MCG TABLET PO SCH (20:46)
[2018-04-23] MEDS: ENOXAPARIN 40 MG/0.4 ML SYRINGE SUBCUT SCH (20:48)
[2018-04-24] MEDS: ALBUTEROL/IPRATROPIUM 3 ML NEB RESP TX SCH ×4 (00:40→19:25)
[2018-04-24] MEDS: INSULIN REGULAR 100 UNIT/ML SUBCUT SCH ×4 (00:59→18:30)
[2018-04-24] MEDS: VANCOMYCIN INJ 1,000 MG in SODIUM CHLORIDE 0.9% 250 ML IV SCH (00:59)
[2018-04-24] MEDS: PIPERACILLIN/TAZOBACTAM 3,375 MG in SODIUM CHLORIDE 0.9% 100 ML IV SCH ×3 (03:48→20:16)
[2018-04-24] MEDS: SODIUM CHLORIDE 0.9% 1,000 ML IV SCH ×3 (03:50→22:19)
[2018-04-24 03:52] LABS: ABG Base Excess 0.4 MMOL/L (-2.5-2.5); ABG HCO3 24.8 MMOL/L (20-26); ABG Oxygen Saturation 98.7 % (95-100); ABG PCO2 35.6 MM HG (35-48); ABG PH 7.439 (7.35-7.45); ABG TCO2 21.5 MMOL/L (23-27)
[2018-04-24] MEDS: ALPRAZolam 0.25 MG TABLET PO PRN ×3 (03:53→20:15)
[2018-04-24] MEDS: LEVOFLOXACIN INJ 500 MG in PREMIX 1 EACH IV SCH (08:28)
[2018-04-24] MEDS: PANTOPRAZOLE 40 MG VIAL IV SCH (08:31)
[2018-04-24] MEDS: fentaNYL 50 MCG/HR PATCH TRANSDERM SCH (08:33)
[2018-04-24] MEDS: NICOTINE 14 MG/24 HR PATCH TRANSDERM SCH (08:35)
[2018-04-24] MEDS: VENLAFAXINE 75 MG TABLET PER TUBE SCH ×2 (08:38→20:15)
[2018-04-24] MEDS: POTASSIUM PHOS/SOD PHOS POWDER 250 MG PACK PO SCH ×3 (10:20→20:15)
[2018-04-24] MEDS: DOCUSATE SODIUM 100 MG/10 ML UDCUP PER TUBE SCH ×2 (10:20→20:16)
[2018-04-24] MEDS: methylPREDNISolone SOD SUC 125 MG/2 ML VIAL IV SCH (12:54)
[2018-04-24] MEDS: KETOROLAC 30 MG/1 ML VIAL IV PRN (12:55)
[2018-04-24] MEDS: LETROZOLE 2.5 MG TABLET PO SCH (20:15)
[2018-04-24] MEDS: VALSARTAN/HCTZ 80-12.5 MG TABLET PO SCH (20:15)
[2018-04-24] MEDS: LEVOTHYROXINE 100 MCG TABLET PO SCH (20:15)
[2018-04-24] MEDS: ENOXAPARIN 40 MG/0.4 ML SYRINGE SUBCUT SCH (20:30)
[2018-04-25] MEDS: methylPREDNISolone SOD SUC 125 MG/2 ML VIAL IV SCH ×2 (00:28→11:33)
[2018-04-25] MEDS: ALBUTEROL/IPRATROPIUM 3 ML NEB RESP TX SCH ×3 (00:29→13:35)
[2018-04-25 03:39] LABS: ABG Base Excess -0.9 MMOL/L (-2.5-2.5); ABG HCO3 22.3 MMOL/L (20-26); ABG Oxygen Saturation 97.7 % (95-100); ABG PCO2 32.4 MM HG (35-48); ABG PH 7.456 (7.35-7.45); ABG PO2 113.2 MM HG (80-95); ABG TCO2 23.3 MMOL/L (23-27)
[2018-04-25] MEDS: PIPERACILLIN/TAZOBACTAM 3,375 MG in SODIUM CHLORIDE 0.9% 100 ML IV SCH ×2 (04:14→11:33)
[2018-04-25 04:37] LABS: Basophils % 0.3 % (0.0-0.8); Eosinophils % 0.2 % (0.00-10.9); Hematocrit 33.1 VOL% (35.7-47.0); Hemoglobin 11.4 GM/DL (12.0-16.0); Immature Granulocytes % 11.4 %; Lymphocytes # 0.8 10*3/uL (1.4-4.0); Lymphocytes % 8.2 % (21.3-54.2); Mean Corpuscular HGB Conc 34.4 GM/DL (32-36); Mean Corpuscular Hemoglobin 33 PG (27-34); Mean Corpuscular Volume 97.1 FL (87-102); Mean Platelet Volume 10.3 FL (9.6-12.0); Monocytes # 0.9 10*3/uL (0.11-0.8); Monocytes % 9.1 % (1.7-12.7); Neutrophils # 6.9 10*3/uL (1.4-7.4); Neutrophils % 70.8 % (38.7-73.9); Platelet Count 208 T/CUMM (130-400); Red Blood Count 3.41 MC/CUMM (3.8-5.5); Red Cell Distribution Width 18.8 % (9.3-17.3); White Blood Count 9.7 T/CUMM (4-12)
[2018-04-25 04:59] LABS: Band Neutrophils 6 % (0-10); Eosinophils 2 % (0-10); Lymphocytes 6 % (20-55); Segmented Neutrophils 80 % (50-85); Total Cells Counted 100
[2018-04-25 05:00] LABS: Hypochromasia 1+; Macrocytosis 1+; Platelet Estimate Adequate
[2018-04-25 06:59] VITALS: BP 123/79
[2018-04-25] MEDS: POTASSIUM PHOS/SOD PHOS POWDER 250 MG PACK PO SCH (08:36)
[2018-04-25] MEDS: DOCUSATE SODIUM 100 MG/10 ML UDCUP PER TUBE SCH (08:38)
[2018-04-25] MEDS: VENLAFAXINE 75 MG TABLET PER TUBE SCH (08:39)
[2018-04-25] MEDS: NICOTINE 14 MG/24 HR PATCH TRANSDERM SCH (08:44)
[2018-04-25] MEDS: LEVOFLOXACIN INJ 500 MG in PREMIX 1 EACH IV SCH (08:44)
[2018-04-25] MEDS: PANTOPRAZOLE 40 MG VIAL IV SCH (08:44)
[2018-04-25] MEDS: SODIUM CHLORIDE 0.9% 1,000 ML IV SCH (11:33)
== END 2018-04-25 12:45 | DRG 870 ==
LOC: EDBD → EDUNIT# → N.ED 17:02 → SUATTDRO 19:46 → N.EDINP 19:46 → N.4E 20:58 → N.ICU 04-15 15:05
PROVIDERS: ADMIT Internal Medicine; ATTEND Family Medicine